=== PATIENT | male | born 1945 | race Caucasian/White ===

== ENCOUNTER 2017-11-04 13:06 | Inpatient (IN) | payer MEDICARE ==
[2017-11-04] VITALS (10 sets, daily range): BP systolic 94–126; BP diastolic 52–74
[~2017-11-04] VITALS: Ht 177.8 cm; Wt 90.0 kg
[~2017-11-04 13:06] MED LIST: DOPamine/D5W 400mg/250ml bag IV ONE; K, MAG and/or Phos replacement - Verify level? MC SCH; NORepinephrine 1 mg/ml inj IV ONE; amiodarone 50MG/ML inj IV ONE; cefTRIAXone 1g/NS 100ml IVPB 100 ML IV SCH; enoxaparin 80mg/0.8ml syringe SQ SCH; epiNEPHrine 0.1mg/ml 10ml syringe ONE; etomidate 2mg/ml inj. ONE; pantoprazole 40 MG vial IV SCH; rocuronium 10mg/ml inj IV ONE
[2017-11-04] MEDS ORDERED: amiodarone/D5 360MG/200ML BAG 200 ML IV SCH (13:12)
[2017-11-04] MEDS: DOPamine 400mg/D5W 250ml 250 ML IV SCH ×2 (13:52→15:52)
[2017-11-04 13:57] LABS: INR 1.1 INR; PARTIAL THROMBOPLASTIN TIME 22 SECONDS (22-32); PROTHROMBIN TIME 11.4 SECONDS (9.0-12.0)
[2017-11-04 14:01] LABS: ALANINE AMINOTRANSFERASE 76 U/L (12-78); ALBUMIN 2.8 G/DL (3.4-5.0); ALKALINE PHOSPHATASE 58 IU/L (46-116); ANION GAP 18 (8-16); ASPARTATE AMINO TRANSFERASE 112 U/L (10-37); BILIRUBIN,TOTAL 0.5 MG/DL (0.1-1.0); BLOOD UREA NITROGEN 25 MG/DL (7-18); BUN/CREATININE RATIO 22.9 (5.4-32.0); CALCIUM 6.7 MG/DL (8.5-10.1); CHLORIDE 109 MMOL/L (99-107); CREATININE 1.09 MG/DL (0.60-1.10); GLUCOSE 217 MG/DL (70-104); SODIUM 147 MMOL/L (135-145); TOTAL CARBON DIOXIDE 20.5 MMOL/L (24-32); TOTAL PROTEIN 5.6 G/DL (6.4-8.2); eGFR 67 ML/MIN
[2017-11-04] MEDS ORDERED: normal saline 1000ml 1,000 ML IV SCH (14:04)
[2017-11-04 14:05] LABS: POTASSIUM 2.9 MMOL/L (3.5-5.1)
[2017-11-04] MEDS ORDERED: magnesium 2GM in 50ml NS 50 ML IV PRN ×2 (14:05→19:10)
[2017-11-04] MEDS ORDERED: potassium Cl 20 mEq SR tablet PO PRN ×2 (14:05)
[2017-11-04] MEDS ORDERED: acetaminophen 325mg tablet PO PRN ×2 (14:05)
[2017-11-04] MEDS ORDERED: magnesium hydroxide 30ml (MOM) UD suspension PO PRN (14:05)
[2017-11-04] MEDS ORDERED: ondansetron/PF 4mg/2ml inj IV PRN (14:05)
[2017-11-04] MEDS ORDERED: Neutra Phos packet PO PRN (14:05)
[2017-11-04] MEDS ORDERED: magnesium Cl slow-release 64mg tablet PO PRN (14:05)
[2017-11-04] MEDS ORDERED: sodium phosphate inj. 15 MMOL in dextrose 5%-water 150 ML IV PRN (14:05)
[2017-11-04] MEDS ORDERED: magnesium 4gm in 100ml NS 100 ML IV PRN ×2 (14:05→19:10)
[2017-11-04] MEDS ORDERED: sodium phosphate inj. 30 MMOL in dextrose 5%-water 250 ML IV PRN (14:05)
[2017-11-04 14:15] LABS: BASOPHILS % (AUTO) 0.2 % (0-1); EOSINOPHILS # (AUTO) 0.3 X10'3 (0-0.9); EOSINOPHILS % (AUTO) 1.5 % (0-6); HEMATOCRIT 42.8 % (42.0-52.0); HEMOGLOBIN 14.9 g/dl (14.0-17.9); LYMPHOCYTES # (AUTO) 3.2 X10'3 (1.1-4.8); LYMPHOCYTES % (AUTO) 18.5 % (21-51); MEAN CORPUSCULAR HEMOGLOBIN 31.3 PG (27.0-31.0); MEAN CORPUSCULAR HGB CONC 34.9 % (33.0-36.5); MEAN CORPUSCULAR VOLUME 89.8 FL (78-98); MEAN PLATELET VOLUME 6.8 FL (7.4-10.4); MONOCYTES # (AUTO) 0.6 X10'3 (0-0.9); MONOCYTES % (AUTO) 3.6 % (2-12); NEUTROPHILS # (AUTO) 13.3 X10'3 (1.8-7.7); NEUTROPHILS % (AUTO) 76.2 % (42-75); PLATELET COUNT 220 X10'3 (140-440); RED BLOOD COUNT 4.76 X10'6 (4.70-6.10); RED CELL DISTRIBUTION WIDTH 12.8 % (11.5-14.5); WHITE BLOOD COUNT 17.5 X10'3 (4.5-11.0)
[2017-11-04] MEDS ORDERED: CISatracurium **Bolus** 2 mg/ml inj IV PRN (14:15)
[2017-11-04] MEDS ORDERED: dextrose 50%-water 50ml dispensing syringe IV PRN (14:15)
[2017-11-04] MEDS ORDERED: midazolam 100mg in NS 100ml 100 ML IV PRN (14:20)
[2017-11-04] MEDS ORDERED: FENTANYL-0.9 % NACL/PF 100 ML IV PRN (14:20)
[2017-11-04 14:41] LABS: ABG BASE EXCESS -9.1 mmol/L (-2.0-3.0); ABG HCO3 18.2 mmol/L (22.0-26.0); ABG OXYGEN SATURATION 99.4 % (95-98); ABG PCO2 (T) 44.2 mmHg (35.0-48.0); ABG PH (T) 7.232 (7.350-7.450); ABG PO2 (T) 324.4 mmHg (83-108); ALLEN'S TEST Positive; FCOHb 0.7 % (0.5-1.5); FMetHb 0.2 % (0.3-1.12); FO2Hb 98.5 % (94-100); MINUTE VOLUME 9 L/min; PEEP 5 cm H2O; RESPIRATORY RATE 18 b/min; RESPIRATORY RATE (OBSERVED) 18 b/min; TIDAL VOLUME 450 mL; TOTAL HEMOGLOBIN 14.5 G/dl (14.0-18.0)
[2017-11-04] MEDS ORDERED: magnesium 2GM in 50ml NS 50 ML IV ONE (15:15)
[2017-11-04] MEDS ORDERED: potassium 10mEq/100ml NS w/LIDOcaine (10mg/bag) IV ONE (15:15)
[2017-11-04 15:38] LABS: BASOPHILS # (AUTO) 0.1 X10'3 (0-0.2); BASOPHILS % (AUTO) 0.3 % (0-1); EOSINOPHILS # (AUTO) 0.2 X10'3 (0-0.9); EOSINOPHILS % (AUTO) 1.1 % (0-6); HEMATOCRIT 50.7 % (42.0-52.0); HEMOGLOBIN 17.4 g/dl (14.0-17.9); LYMPHOCYTES # (AUTO) 2.1 X10'3 (1.1-4.8); MEAN CORPUSCULAR HEMOGLOBIN 30.9 PG (27.0-31.0); MEAN CORPUSCULAR HGB CONC 34.3 % (33.0-36.5); MEAN CORPUSCULAR VOLUME 90.1 FL (78-98); MEAN PLATELET VOLUME 6.9 FL (7.4-10.4); MONOCYTES # (AUTO) 0.5 X10'3 (0-0.9); MONOCYTES % (AUTO) 2.6 % (2-12); NEUTROPHILS # (AUTO) 16.1 X10'3 (1.8-7.7); PLATELET COUNT 243 X10'3 (140-440); RED BLOOD COUNT 5.62 X10'6 (4.70-6.10); WHITE BLOOD COUNT 18.9 X10'3 (4.5-11.0)
[2017-11-04] MEDS ORDERED: meperidine/PF 25mg/ml syringe IV SCH (16:00)
[2017-11-04] MEDS ORDERED: heparin, porcine 5000 units/ml vial SQ SCH ×2 (16:00→20:00)
[2017-11-04] MEDS ORDERED: mineral oil/petrolatum ophthal oint OP SCH (16:00)
[2017-11-04] MEDS ORDERED: nitroGLYCERIN-Tridil 50MG/D5W 250 ML IV ONE (16:03)
[2017-11-04] MEDS ORDERED: heparin 1,000unit/ml 10ml vial 10 ML ONE (16:03)
[2017-11-04] MEDS ORDERED: LIDOcaine 1%/PF (10mg/ml) 5ml vial ONE (16:03)
[2017-11-04] MEDS ORDERED: iohexol 350 MG/ML 50ML vial IV ONE (16:03)
[2017-11-04] MEDS ORDERED: iohexol 350 MG/1 ML 200ml bottle ONE (16:03)
[2017-11-04] MEDS ORDERED: sodium bicarbonate (8.4%) 1 mEq/ml syringe IV ONE (16:10)
[2017-11-04 16:11] LABS: BETA HCG,QUANTITATIVE < 1.0 mIU/ml; CKMB RELATIVE INDEX 1.5 RATIO (0-2.5); CREATINE KINASE 183 U/L (39-308); MAGNESIUM 1.9 MG/DL (1.5-2.4); PHOSPHORUS 5.4 MG/DL (2.3-4.5); TROPONIN I 0.09 NG/ML (0.0-0.05)
[2017-11-04] MEDS ORDERED: potassium Cl 20mEq/100mL bag 100 ML IV ONE (16:24)
[2017-11-04] MEDS ORDERED: ticagrelor 90mg tablet ONE (16:59)
[2017-11-04] MEDS ORDERED: enoxaparin 40mg/0.4ml syringe SUBCUT SCH (17:39)
[2017-11-04] MEDS ORDERED: aspirin 81mg tab.chew PO ONE (17:46)
[2017-11-04] MEDS ORDERED: ticagrelor 90mg tablet PO ONE (17:46)
[2017-11-04] MEDS ORDERED: proCHLORperazine 10 MG/2 ml inj IV PRN (17:50)
[2017-11-04] MEDS: insulin Lispro (HumaLOG) vial - multi-dose SQ SCH (18:00)
[2017-11-04 19:10] LABS: ABG BASE EXCESS -10.1 mmol/L (-2.0-3.0); ABG HCO3 18.3 mmol/L (22.0-26.0); ABG OXYGEN SATURATION 98.1 % (95-98); ABG PCO2 (T) 46.7 mmHg (35.0-48.0); ABG PH (T) 7.205 (7.350-7.450); FCOHb 0.3 % (0.5-1.5); FMetHb 0.3 % (0.3-1.12); FO2Hb 97.5 % (94-100); MINUTE VOLUME 11 L/min; PATIENT TEMPERATURE 35.6; PEEP 5 cm H2O; RESPIRATORY RATE 18 b/min; RESPIRATORY RATE (OBSERVED) 18 b/min; TIDAL VOLUME 450 mL; TOTAL HEMOGLOBIN 16.5 G/dl (14.0-18.0)
[2017-11-04] MEDS: sodium bicarbonate (8.4%) inj. 150 MEQ in dextrose 5%-water 1,000 ML IV SCH (19:12)
[2017-11-04] MEDS ORDERED: potassium Cl oral solution 20 MEQ/15 ML PO PRN (19:14)
[2017-11-04 19:16] LABS: OXYGEN SATURATION (MIXED VEN) 71.4 % (60-80)
[2017-11-04] MEDS: insulin regular, human inj. 100 UNITS in normal saline 100ml IV soln 100 ML IV SCH ×2 (19:58)
[2017-11-04] MEDS: normal saline 1000ml 1,000 ML IV SCH (19:59)
[2017-11-04] MEDS: potassium Cl 40MEQ/250ML bag 250 ML IV PRN ×2 (19:59→22:13)
[2017-11-04] MEDS ORDERED: ticagrelor 90mg tablet PO SCH (20:00)
[2017-11-04] MEDS: FENTANYL-0.9 % NACL/PF 100 ML IV PRN (20:00)
[2017-11-04] MEDS ORDERED: docusate sod 100mg capsule PO SCH (20:00)
[2017-11-04] MEDS: midazolam 100mg in NS 100ml 100 ML IV PRN (20:00)
[2017-11-04 20:06] LABS: ISTAT HGB ART 15.6 g/dl (14.0-18.0); ISTAT Hct ART 46 %PCV (42-52); ISTAT O2 SATURATION ARTERIAL 98 % (95-98); ISTAT SOURCE ART
[2017-11-04 20:06] LABS: ISTAT Hct MIX 46 %PCV (42-52); ISTAT O2 SATURATION MIX VENOUS 80 % (60-80); ISTAT SOURCE MIX
[2017-11-04] MEDS ORDERED: meperidine/PF 25mg/ml syringe IV PRN (20:45)
[2017-11-04] MEDS: atorvastatin 20mg tablet PO SCH (21:08)
[2017-11-04] MEDS: piperacillin/tazo 4.5gm/100ml 100 ML IV SCH (21:12)
[2017-11-04] MEDS: CISatracurium besylate inj. 200 MG in normal saline 250ml IV soln 180 ML IV PRN (21:22)
[2017-11-04 21:34] LABS: ALBUMIN 3.5 G/DL (3.4-5.0); ANION GAP 13 (8-16); BLOOD UREA NITROGEN 27 MG/DL (7-18); BUN/CREATININE RATIO 23.7 (5.4-32.0); CALCIUM 7.2 MG/DL (8.5-10.1); CHLORIDE 111 MMOL/L (99-107); CHOL/HDL RATIO 2.5 (0.00-4.99); CHOLESTEROL 127 MG/DL (0-200); CREATININE 1.14 MG/DL (0.60-1.10); GLUCOSE 186 MG/DL (70-104); HDL CHOLESTEROL 50 MG/DL (35-60); LDL CHOLESTEROL 77 MG/DL (50-100); MAGNESIUM 2.1 MG/DL (1.5-2.4); POTASSIUM 4.3 MMOL/L (3.5-5.1); SODIUM 145 MMOL/L (135-145); TOTAL CARBON DIOXIDE 20.6 MMOL/L (24-32); TRIGLYCERIDES 28 MG/DL (20-135); eGFR 64 ML/MIN
[2017-11-04] MEDS: cefTRIAXone 1g/NS 100ml IVPB 100 ML IV SCH (22:13)
[2017-11-05] VITALS (24 sets, daily range): BP systolic 94–136; BP diastolic 47–68
[2017-11-05] MEDS: FENTANYL-0.9 % NACL/PF 100 ML IV PRN (00:08)
[2017-11-05] MEDS: normal saline 1000ml 1,000 ML IV SCH ×2 (00:13→03:38)
[2017-11-05] MEDS: midazolam 100mg in NS 100ml 100 ML IV PRN (01:06)
[2017-11-05] MEDS: piperacillin/tazo 4.5gm/100ml 100 ML IV SCH ×3 (02:05→17:28)
[2017-11-05 02:16] LABS: ABG BASE EXCESS -4.7 mmol/L (-2.0-3.0); ABG HCO3 19.6 mmol/L (22.0-26.0); ABG OXYGEN SATURATION 98.8 % (95-98); ABG PCO2 (T) 28.7 mmHg (35.0-48.0); ABG PH (T) 7.434 (7.350-7.450); ABG PO2 (T) 120.9 mmHg (83-108); FCOHb 0.3 % (0.5-1.5); FO2Hb 98.5 % (94-100); MINUTE VOLUME 9 L/min; PATIENT TEMPERATURE 32.8; PEEP 5 cm H2O; RESPIRATORY RATE 18 b/min; RESPIRATORY RATE (OBSERVED) 18 b/min; TIDAL VOLUME 450 mL; TOTAL HEMOGLOBIN 15.8 G/dl (14.0-18.0)
[2017-11-05 02:21] LABS: OXYGEN SATURATION (MIXED VEN) 75.9 % (60-80); PO2 MIXED VENOUS (TEMP COR) 26.9 mmHg (35-46)
[2017-11-05 02:44] LABS: CHLORIDE 110 MMOL/L (99-107); MAGNESIUM 1.9 MG/DL (1.5-2.4); SODIUM 145 MMOL/L (135-145)
[2017-11-05 03:07] LABS: ALBUMIN 3.3 G/DL (3.4-5.0); ANION GAP 14 (8-16); BLOOD UREA NITROGEN 22 MG/DL (7-18); BUN/CREATININE RATIO 24.2 (5.4-32.0); CALCIUM 7.3 MG/DL (8.5-10.1); CREATININE 0.91 MG/DL (0.60-1.10); GLUCOSE 183 MG/DL (70-104); TOTAL CARBON DIOXIDE 20.8 MMOL/L (24-32); eGFR 82 ML/MIN
[2017-11-05 03:19] LABS: POTASSIUM 2.9 MMOL/L (3.5-5.1)
[2017-11-05] MEDS ORDERED: potassium Cl 40MEQ/250ML bag 250 ML IV ONE (03:34)
[2017-11-05] MEDS: potassium Cl 40MEQ/250ML bag 250 ML IV PRN ×2 (03:38→08:52)
[2017-11-05 03:49] LABS: CKMB RELATIVE INDEX 6.4 RATIO (0-2.5); CREATINE KINASE 283 U/L (39-308)
[2017-11-05 04:44] LABS: BASOPHILS % (AUTO) 0 % (0-1); EOSINOPHILS % (AUTO) 0 % (0-6); HEMATOCRIT 42.6 % (42.0-52.0); HEMOGLOBIN 14.9 g/dl (14.0-17.9); LYMPHOCYTES # (AUTO) 0.8 X10'3 (1.1-4.8); LYMPHOCYTES % (AUTO) 5.1 % (21-51); MEAN CORPUSCULAR HEMOGLOBIN 31.2 PG (27.0-31.0); MEAN CORPUSCULAR HGB CONC 34.9 % (33.0-36.5); MEAN CORPUSCULAR VOLUME 89.4 FL (78-98); MEAN PLATELET VOLUME 6.9 FL (7.4-10.4); MONOCYTES # (AUTO) 0.7 X10'3 (0-0.9); MONOCYTES % (AUTO) 4.4 % (2-12); NEUTROPHILS % (AUTO) 90.5 % (42-75); PLATELET COUNT 160 X10'3 (140-440); RED BLOOD COUNT 4.76 X10'6 (4.70-6.10); RED CELL DISTRIBUTION WIDTH 12.5 % (11.5-14.5); WHITE BLOOD COUNT 16.6 X10'3 (4.5-11.0)
[2017-11-05 04:58] LABS: INR 1.1 INR; PROTHROMBIN TIME 11.4 SECONDS (9.0-12.0)
[2017-11-05 05:08] LABS: ALANINE AMINOTRANSFERASE 80 U/L (12-78); ALBUMIN 3.2 G/DL (3.4-5.0); ALKALINE PHOSPHATASE 48 IU/L (46-116); ANION GAP 12 (8-16); ASPARTATE AMINO TRANSFERASE 95 U/L (10-37); BILIRUBIN,TOTAL 0.7 MG/DL (0.1-1.0); BLOOD UREA NITROGEN 20 MG/DL (7-18); BUN/CREATININE RATIO 23.3 (5.4-32.0); CALCIUM 7.3 MG/DL (8.5-10.1); CHLORIDE 110 MMOL/L (99-107); CREATININE 0.86 MG/DL (0.60-1.10); GLUCOSE 171 MG/DL (70-104); MAGNESIUM 1.8 MG/DL (1.5-2.4); POTASSIUM 3.2 MMOL/L (3.5-5.1); SODIUM 145 MMOL/L (135-145); TOTAL CARBON DIOXIDE 23.5 MMOL/L (24-32); TOTAL PROTEIN 6.4 G/DL (6.4-8.2); eGFR 88 ML/MIN
[2017-11-05 05:10] LABS: PHOSPHORUS 0.9 MG/DL (2.3-4.5)
[2017-11-05] MEDS: sodium bicarbonate (8.4%) inj. 150 MEQ in dextrose 5%-water 1,000 ML IV SCH ×2 (05:15→17:28)
[2017-11-05] MEDS: DOPamine 400mg/D5W 250ml 250 ML IV SCH ×2 (05:15→17:29)
[2017-11-05] MEDS: potassium Cl oral solution 20 MEQ/15 ML PO PRN (05:43)
[2017-11-05 06:47] LABS: ALBUMIN 3.3 G/DL (3.4-5.0); ANION GAP 12 (8-16); BLOOD UREA NITROGEN 20 MG/DL (7-18); BUN/CREATININE RATIO 22.7 (5.4-32.0); CALCIUM 7.1 MG/DL (8.5-10.1); CHLORIDE 110 MMOL/L (99-107); CREATININE 0.88 MG/DL (0.60-1.10); GLUCOSE 157 MG/DL (70-104); MAGNESIUM 1.7 MG/DL (1.5-2.4); SODIUM 145 MMOL/L (135-145); eGFR 86 ML/MIN
[2017-11-05 06:50] LABS: CKMB RELATIVE INDEX 3.3 RATIO (0-2.5); CREATINE KINASE 1662 U/L (39-308)
[2017-11-05 06:52] LABS: TROPONIN I 1.97 NG/ML (0.0-0.05)
[2017-11-05] MEDS: lisinopril 5mg tablet PO SCH ×2 (08:00→08:43)
[2017-11-05] MEDS: K and/or MAG REPLACEMENT MC SCH (08:00)
[2017-11-05] MEDS: metoprolol tartrate 25mg tablet PO SCH ×2 (08:00→19:31)
[2017-11-05 08:01] LABS: PO2 MIXED VENOUS (TEMP COR) 36.2 mmHg (35-46)
[2017-11-05 08:01] LABS: ABG BASE EXCESS -4.7 mmol/L (-2.0-3.0); ABG HCO3 19.4 mmol/L (22.0-26.0); ABG OXYGEN SATURATION 97.9 % (95-98); ABG PCO2 (T) 27.8 mmHg (35.0-48.0); ABG PH (T) 7.442 (7.350-7.450); FCOHb 0.3 % (0.5-1.5); FMetHb 0.1 % (0.3-1.12); FO2Hb 97.5 % (94-100); MINUTE VOLUME 9 L/min; PATIENT TEMPERATURE 32.8; PEEP 5 cm H2O; RESPIRATORY RATE 18 b/min; RESPIRATORY RATE (OBSERVED) 18 b/min; TIDAL VOLUME 450 mL; TOTAL HEMOGLOBIN 15.3 G/dl (14.0-18.0)
[2017-11-05] MEDS: pantoprazole 40 MG vial IV SCH (08:43)
[2017-11-05] MEDS: aspirin 81mg tab.chew PO SCH (08:43)
[2017-11-05] MEDS: ticagrelor 90mg tablet PO SCH ×2 (08:43→20:19)
[2017-11-05] MEDS: insulin Lispro (HumaLOG) vial - multi-dose SQ SCH ×3 (09:00→18:00)
[2017-11-05 09:28] LABS: PHOSPHORUS 0.8 MG/DL (2.3-4.5)
[2017-11-05] MEDS: docusate sodium 100mg/10ml UD cup PO SCH ×2 (09:42→20:19)
[2017-11-05] MEDS ORDERED: NO HOME MEDS (11:21)
[2017-11-05] MEDS ORDERED: mineral oil/petrolatum ophthal oint EACHEYE PRN (12:00)
[2017-11-05] MEDS: insulin regular, human inj. 100 UNITS in normal saline 100ml IV soln 100 ML IV SCH ×4 (14:15→18:19)
[2017-11-05 14:53] LABS: CKMB RELATIVE INDEX 3.4 RATIO (0-2.5); CREATINE KINASE 1666 U/L (39-308)
[2017-11-05 14:55] LABS: TROPONIN I 1.11 NG/ML (0.0-0.05)
[2017-11-05 15:00] LABS: ABG BASE EXCESS -1.9 mmol/L (-2.0-3.0); ABG HCO3 22.3 mmol/L (22.0-26.0); ABG PCO2 (T) 31.3 mmHg (35.0-48.0); ABG PH (T) 7.456 (7.350-7.450); ABG PO2 (T) 87.3 mmHg (83-108); FCOHb 0.1 % (0.5-1.5); FMetHb 0.3 % (0.3-1.12); FO2Hb 97.6 % (94-100); MINUTE VOLUME 8 L/min; PATIENT TEMPERATURE 33.6; PEEP 5 cm H2O; RESPIRATORY RATE 15 b/min; RESPIRATORY RATE (OBSERVED) 15 b/min; TIDAL VOLUME 450 mL; TOTAL HEMOGLOBIN 14.8 G/dl (14.0-18.0)
[2017-11-05 15:06] LABS: OXYGEN SATURATION (MIXED VEN) 86.2 % (60-80); PO2 MIXED VENOUS (TEMP COR) 35.7 mmHg (35-46)
[2017-11-05 15:44] LABS: ALBUMIN 2.9 G/DL (3.4-5.0); ANION GAP 10 (8-16); BLOOD UREA NITROGEN 20 MG/DL (7-18); BUN/CREATININE RATIO 28.2 (5.4-32.0); CHLORIDE 109 MMOL/L (99-107); CREATININE 0.71 MG/DL (0.60-1.10); GLUCOSE 115 MG/DL (70-104); MAGNESIUM 1.7 MG/DL (1.5-2.4); POTASSIUM 3.6 MMOL/L (3.5-5.1); SODIUM 145 MMOL/L (135-145); TOTAL CARBON DIOXIDE 25.6 MMOL/L (24-32); eGFR > 90 ML/MIN
[2017-11-05] MEDS ORDERED: mineral oil/petrolatum ophthal oint EACHEYE SCH (20:00)
[2017-11-05] MEDS: atorvastatin 20mg tablet PO SCH (20:20)
[2017-11-05] MEDS: cefTRIAXone 1g/NS 100ml IVPB 100 ML IV SCH (20:21)
[2017-11-05] MEDS: heparin, porcine 5000 units/ml vial SQ SCH (20:21)
[2017-11-05 20:31] LABS: ABG BASE EXCESS -0.6 mmol/L (-2.0-3.0); ABG HCO3 23.9 mmol/L (22.0-26.0); ABG PCO2 (T) 34.3 mmHg (35.0-48.0); ABG PH (T) 7.449 (7.350-7.450); ABG PO2 (T) 57.5 mmHg (83-108); MINUTE VOLUME 12 L/min; PATIENT TEMPERATURE 34.1; PEEP 5 cm H2O; RESPIRATORY RATE 12 b/min; RESPIRATORY RATE (OBSERVED) 16 b/min; TIDAL VOLUME 450 mL
[2017-11-05 20:32] LABS: ABG OXYGEN SATURATION 94.9 % (95-98); FCOHb 0.2 % (0.5-1.5); FMetHb 0.1 % (0.3-1.12); FO2Hb 94.6 % (94-100); TOTAL HEMOGLOBIN 14.4 G/dl (14.0-18.0)
[2017-11-05 20:36] LABS: ALBUMIN 2.8 G/DL (3.4-5.0); ANION GAP 7 (8-16); BLOOD UREA NITROGEN 20 MG/DL (7-18); BUN/CREATININE RATIO 29.4 (5.4-32.0); CHLORIDE 108 MMOL/L (99-107); CREATININE 0.68 MG/DL (0.60-1.10); GLUCOSE 130 MG/DL (70-104); MAGNESIUM 1.7 MG/DL (1.5-2.4); POTASSIUM 3.2 MMOL/L (3.5-5.1); SODIUM 145 MMOL/L (135-145); TOTAL CARBON DIOXIDE 29.9 MMOL/L (24-32); eGFR > 90 ML/MIN
[2017-11-05 20:36] LABS: OXYGEN SATURATION (MIXED VEN) 74.4 % (60-80); PO2 MIXED VENOUS (TEMP COR) 29.7 mmHg (35-46)
[2017-11-05] MEDS: CISatracurium besylate inj. 200 MG in normal saline 250ml IV soln 180 ML IV PRN (21:57)
[2017-11-06] VITALS (24 sets, daily range): BP systolic 86–133; BP diastolic 44–63
[2017-11-06] MEDS: piperacillin/tazo 4.5gm/100ml 100 ML IV SCH ×4 (00:04→23:38)
[2017-11-06] MEDS: insulin regular, human inj. 100 UNITS in normal saline 100ml IV soln 100 ML IV SCH ×6 (01:10→04:07)
[2017-11-06] MEDS: FENTANYL-0.9 % NACL/PF 100 ML IV PRN ×2 (01:39→18:35)
[2017-11-06] MEDS: midazolam 100mg in NS 100ml 100 ML IV PRN ×2 (01:40→14:44)
[2017-11-06 02:20] LABS: BASOPHILS % (AUTO) 0.1 % (0-1); EOSINOPHILS % (AUTO) 0 % (0-6); HEMATOCRIT 38.5 % (42.0-52.0); HEMOGLOBIN 13.4 g/dl (14.0-17.9); LYMPHOCYTES % (AUTO) 6.5 % (21-51); MEAN CORPUSCULAR HEMOGLOBIN 31.4 PG (27.0-31.0); MEAN CORPUSCULAR HGB CONC 34.8 % (33.0-36.5); MEAN PLATELET VOLUME 6.6 FL (7.4-10.4); MONOCYTES # (AUTO) 0.6 X10'3 (0-0.9); MONOCYTES % (AUTO) 3.7 % (2-12); NEUTROPHILS # (AUTO) 13.6 X10'3 (1.8-7.7); NEUTROPHILS % (AUTO) 89.7 % (42-75); PLATELET COUNT 151 X10'3 (140-440); RED BLOOD COUNT 4.27 X10'6 (4.70-6.10); RED CELL DISTRIBUTION WIDTH 12.8 % (11.5-14.5); WHITE BLOOD COUNT 15.2 X10'3 (4.5-11.0)
[2017-11-06 02:31] LABS: INR 1.1 INR; PARTIAL THROMBOPLASTIN TIME 29 SECONDS (22-32); PROTHROMBIN TIME 11.4 SECONDS (9.0-12.0)
[2017-11-06 02:37] LABS: ALANINE AMINOTRANSFERASE 61 U/L (12-78); ALBUMIN 2.6 G/DL (3.4-5.0); ALBUMIN/GLOBULIN RATIO 0.9 (1.1-1.5); ALKALINE PHOSPHATASE 42 IU/L (46-116); ANION GAP 7 (8-16); ASPARTATE AMINO TRANSFERASE 56 U/L (10-37); BILIRUBIN,TOTAL 0.8 MG/DL (0.1-1.0); BLOOD UREA NITROGEN 18 MG/DL (7-18); BUN/CREATININE RATIO 21.4 (5.4-32.0); CALCIUM 6.7 MG/DL (8.5-10.1); CHLORIDE 105 MMOL/L (99-107); CREATININE 0.84 MG/DL (0.60-1.10); GLUCOSE 152 MG/DL (70-104); MAGNESIUM 1.6 MG/DL (1.5-2.4); PHOSPHORUS 3.4 MG/DL (2.3-4.5); POTASSIUM 3.5 MMOL/L (3.5-5.1); SODIUM 142 MMOL/L (135-145); TOTAL CARBON DIOXIDE 30.4 MMOL/L (24-32); TOTAL PROTEIN 5.6 G/DL (6.4-8.2); eGFR 90 ML/MIN
[2017-11-06 03:21] LABS: ABG BASE EXCESS 3.5 mmol/L (-2.0-3.0); ABG HCO3 28.4 mmol/L (22.0-26.0); ABG OXYGEN SATURATION 95.7 % (95-98); ABG PCO2 (T) 41.9 mmHg (35.0-48.0); ABG PH (T) 7.444 (7.350-7.450); ABG PO2 (T) 71.1 mmHg (83-108); FCOHb 0.3 % (0.5-1.5); FO2Hb 95.4 % (94-100); MINUTE VOLUME 6 L/min; PATIENT TEMPERATURE 35.9; PEEP 5 cm H2O; RESPIRATORY RATE 12 b/min; RESPIRATORY RATE (OBSERVED) 12 b/min; TIDAL VOLUME 450 mL; TOTAL HEMOGLOBIN 13.5 G/dl (14.0-18.0)
[2017-11-06] MEDS: sodium bicarbonate (8.4%) inj. 150 MEQ in dextrose 5%-water 1,000 ML IV SCH (04:59)
[2017-11-06] MEDS: K and/or MAG REPLACEMENT MC SCH (08:00)
[2017-11-06] MEDS: insulin Lispro (HumaLOG) vial - multi-dose SQ SCH (09:00)
[2017-11-06] MEDS: ticagrelor 90mg tablet PO SCH ×2 (10:32→20:33)
[2017-11-06] MEDS: lisinopril 5mg tablet PO SCH (10:32)
[2017-11-06] MEDS: pantoprazole 40 MG vial IV SCH (10:32)
[2017-11-06] MEDS: aspirin 81mg tab.chew PO SCH (10:32)
[2017-11-06] MEDS: metoprolol tartrate 25mg tablet PO SCH ×2 (10:32→20:00)
[2017-11-06] MEDS: docusate sodium 100mg/10ml UD cup PO SCH ×2 (10:32→20:30)
[2017-11-06] MEDS: heparin, porcine 5000 units/ml vial SQ SCH ×2 (10:33→20:30)
[2017-11-06] MEDS: atorvastatin 20mg tablet PO SCH (20:30)
[2017-11-06] MEDS: cefTRIAXone 1g/NS 100ml IVPB 100 ML IV SCH (20:35)
[2017-11-07] VITALS (24 sets, daily range): BP systolic 85–162; BP diastolic 47–78
[2017-11-07] MEDS: midazolam 100mg in NS 100ml 100 ML IV PRN (02:39)
[2017-11-07 02:49] LABS: BASOPHILS % (AUTO) 0.1 % (0-1); EOSINOPHILS # (AUTO) 0.1 X10'3 (0-0.9); EOSINOPHILS % (AUTO) 0.6 % (0-6); HEMATOCRIT 33.7 % (42.0-52.0); HEMOGLOBIN 11.8 g/dl (14.0-17.9); LYMPHOCYTES # (AUTO) 1.3 X10'3 (1.1-4.8); MEAN CORPUSCULAR HEMOGLOBIN 31.3 PG (27.0-31.0); MEAN CORPUSCULAR HGB CONC 35.1 % (33.0-36.5); MEAN CORPUSCULAR VOLUME 89.2 FL (78-98); MEAN PLATELET VOLUME 7.3 FL (7.4-10.4); MONOCYTES # (AUTO) 0.7 X10'3 (0-0.9); MONOCYTES % (AUTO) 6.3 % (2-12); NEUTROPHILS # (AUTO) 8.7 X10'3 (1.8-7.7); PLATELET COUNT 121 X10'3 (140-440); RED BLOOD COUNT 3.78 X10'6 (4.70-6.10); RED CELL DISTRIBUTION WIDTH 13.1 % (11.5-14.5); WHITE BLOOD COUNT 10.7 X10'3 (4.5-11.0)
[2017-11-07 03:01] LABS: INR 1.1 INR; PARTIAL THROMBOPLASTIN TIME 31 SECONDS (22-32); PROTHROMBIN TIME 11.3 SECONDS (9.0-12.0)
[2017-11-07 03:06] LABS: ANION GAP 9 (8-16); BLOOD UREA NITROGEN 19 MG/DL (7-18); CHLORIDE 106 MMOL/L (99-107); CREATININE 0.97 MG/DL (0.60-1.10); GLUCOSE 112 MG/DL (70-104); POTASSIUM 3.3 MMOL/L (3.5-5.1); SODIUM 144 MMOL/L (135-145); TOTAL CARBON DIOXIDE 29.3 MMOL/L (24-32)
[2017-11-07 03:07] LABS: ALANINE AMINOTRANSFERASE 44 U/L (12-78); ALBUMIN 2.4 G/DL (3.4-5.0); ALBUMIN/GLOBULIN RATIO 0.8 (1.1-1.5); ALKALINE PHOSPHATASE 41 IU/L (46-116); ASPARTATE AMINO TRANSFERASE 35 U/L (10-37); BILIRUBIN,TOTAL 1.1 MG/DL (0.1-1.0); BUN/CREATININE RATIO 19.6 (5.4-32.0); CALCIUM 7.2 MG/DL (8.5-10.1); MAGNESIUM 1.6 MG/DL (1.5-2.4); PHOSPHORUS 3.5 MG/DL (2.3-4.5); PREALBUMIN 15.4 MG/DL (19-36); TOTAL PROTEIN 5.5 G/DL (6.4-8.2); eGFR 77 ML/MIN
[2017-11-07 03:51] LABS: ABG BASE EXCESS 2.8 mmol/L (-2.0-3.0); ABG HCO3 26.9 mmol/L (22.0-26.0); ABG PCO2 (T) 40.7 mmHg (35.0-48.0); ABG PH (T) 7.441 (7.350-7.450); ABG PO2 (T) 67.7 mmHg (83-108); FCOHb 0.4 % (0.5-1.5); FO2Hb 93.6 % (94-100); MINUTE VOLUME 7 L/min; PATIENT TEMPERATURE 37.6; PEEP 5 cm H2O; RESPIRATORY RATE 12 b/min; RESPIRATORY RATE (OBSERVED) 14 b/min; TIDAL VOLUME 450 mL; TOTAL HEMOGLOBIN 12.5 G/dl (14.0-18.0)
[2017-11-07] MEDS ORDERED: potassium Cl 40MEQ/250ML bag 250 ML IV ONE (04:01)
[2017-11-07] MEDS: potassium Cl 40MEQ/250ML bag 250 ML IV PRN (04:15)
[2017-11-07] MEDS: FENTANYL-0.9 % NACL/PF 100 ML IV PRN ×2 (05:40→22:29)
[2017-11-07] MEDS: K and/or MAG REPLACEMENT MC SCH (08:00)
[2017-11-07] MEDS: docusate sodium 100mg/10ml UD cup PO SCH ×2 (08:25→19:00)
[2017-11-07] MEDS: lisinopril 5mg tablet PO SCH (08:25)
[2017-11-07] MEDS: metoprolol tartrate 25mg tablet PO SCH ×2 (08:25→19:00)
[2017-11-07] MEDS: heparin, porcine 5000 units/ml vial SQ SCH ×2 (08:25→19:01)
[2017-11-07] MEDS: piperacillin/tazo 4.5gm/100ml 100 ML IV SCH ×3 (08:25→23:49)
[2017-11-07] MEDS: pantoprazole 40 MG vial IV SCH (08:25)
[2017-11-07] MEDS: ticagrelor 90mg tablet PO SCH ×2 (08:26→19:00)
[2017-11-07] MEDS: aspirin 81mg tab.chew PO SCH (08:26)
[2017-11-07] MEDS: atorvastatin 20mg tablet PO SCH (21:17)
[2017-11-08] VITALS (24 sets, daily range): BP systolic 114–188; BP diastolic 60–94
[2017-11-08] MEDS ORDERED: normal saline 1000ml 1,000 ML IV ONE (01:45)
[2017-11-08 02:36] LABS: ABG BASE EXCESS -0.2 mmol/L (-2.0-3.0); ABG OXYGEN SATURATION 96.2 % (95-98); ABG PCO2 (T) 38.5 mmHg (35.0-48.0); ABG PH (T) 7.415 (7.350-7.450); ABG PO2 (T) 83.7 mmHg (83-108); ALLEN'S TEST Positive; FCOHb 0.3 % (0.5-1.5); FO2Hb 95.9 % (94-100); MINUTE VOLUME 11 L/min; PATIENT TEMPERATURE 37.4; PEEP 5 cm H2O; RESPIRATORY RATE 12 b/min; RESPIRATORY RATE (OBSERVED) 17 b/min; TIDAL VOLUME 450 mL; TOTAL HEMOGLOBIN 11.9 G/dl (14.0-18.0)
[2017-11-08 03:21] LABS: BASOPHILS % (AUTO) 0.3 % (0-1); EOSINOPHILS # (AUTO) 0.1 X10'3 (0-0.9); EOSINOPHILS % (AUTO) 1.2 % (0-6); HEMOGLOBIN 11.3 g/dl (14.0-17.9); LYMPHOCYTES # (AUTO) 1.4 X10'3 (1.1-4.8); LYMPHOCYTES % (AUTO) 16.3 % (21-51); MEAN CORPUSCULAR HEMOGLOBIN 31.6 PG (27.0-31.0); MEAN CORPUSCULAR HGB CONC 35.3 % (33.0-36.5); MEAN CORPUSCULAR VOLUME 89.5 FL (78-98); MONOCYTES # (AUTO) 0.7 X10'3 (0-0.9); MONOCYTES % (AUTO) 7.6 % (2-12); NEUTROPHILS # (AUTO) 6.5 X10'3 (1.8-7.7); NEUTROPHILS % (AUTO) 74.6 % (42-75); PLATELET COUNT 108 X10'3 (140-440); RED BLOOD COUNT 3.57 X10'6 (4.70-6.10); RED CELL DISTRIBUTION WIDTH 12.4 % (11.5-14.5); WHITE BLOOD COUNT 8.7 X10'3 (4.5-11.0)
[2017-11-08 03:30] LABS: PARTIAL THROMBOPLASTIN TIME 29 SECONDS (22-32); PROTHROMBIN TIME 10.5 SECONDS (9.0-12.0)
[2017-11-08 03:36] LABS: ALANINE AMINOTRANSFERASE 35 U/L (12-78); ALBUMIN 2.2 G/DL (3.4-5.0); ALBUMIN/GLOBULIN RATIO 0.7 (1.1-1.5); ALKALINE PHOSPHATASE 46 IU/L (46-116); ANION GAP 7 (8-16); ASPARTATE AMINO TRANSFERASE 27 U/L (10-37); BILIRUBIN,TOTAL 1.5 MG/DL (0.1-1.0); BLOOD UREA NITROGEN 18 MG/DL (7-18); BUN/CREATININE RATIO 17.3 (5.4-32.0); CALCIUM 7.3 MG/DL (8.5-10.1); CHLORIDE 108 MMOL/L (99-107); CREATININE 1.04 MG/DL (0.60-1.10); GLUCOSE 112 MG/DL (70-104); MAGNESIUM 1.7 MG/DL (1.5-2.4); PHOSPHORUS 2.9 MG/DL (2.3-4.5); POTASSIUM 3.6 MMOL/L (3.5-5.1); SODIUM 142 MMOL/L (135-145); TOTAL CARBON DIOXIDE 27.4 MMOL/L (24-32); TOTAL PROTEIN 5.4 G/DL (6.4-8.2); eGFR 71 ML/MIN
[2017-11-08] MEDS: docusate sodium 100mg/10ml UD cup PO SCH (08:29)
[2017-11-08] MEDS: piperacillin/tazo 4.5gm/100ml 100 ML IV SCH ×2 (08:29→16:14)
[2017-11-08] MEDS: pantoprazole 40 MG vial IV SCH (08:29)
[2017-11-08] MEDS: aspirin 81mg tab.chew PO SCH (08:30)
[2017-11-08] MEDS: metoprolol tartrate 25mg tablet PO SCH ×2 (08:30→20:15)
[2017-11-08] MEDS: ticagrelor 90mg tablet PO SCH ×2 (08:30→20:34)
[2017-11-08] MEDS: lactobacillus rhamnosus 10,000 MMU CELLS/CAPSULE PO SCH ×2 (08:30→17:39)
[2017-11-08] MEDS: heparin, porcine 5000 units/ml vial SQ SCH ×2 (08:30→20:34)
[2017-11-08] MEDS: lisinopril 5mg tablet PO SCH (08:30)
[2017-11-08] MEDS: atorvastatin 20mg tablet PO SCH (20:14)
[2017-11-08] MEDS: docusate sod 100mg capsule PO SCH (20:16)
[2017-11-09] VITALS (18 sets, daily range): BP systolic 123–166; BP diastolic 55–93
[2017-11-09] MEDS: piperacillin/tazo 4.5gm/100ml 100 ML IV SCH ×4 (01:22→23:14)
[2017-11-09 02:35] LABS: BASOPHILS % (AUTO) 0.4 % (0-1); EOSINOPHILS # (AUTO) 0.1 X10'3 (0-0.9); EOSINOPHILS % (AUTO) 1.4 % (0-6); HEMATOCRIT 33.4 % (42.0-52.0); HEMOGLOBIN 11.9 g/dl (14.0-17.9); LYMPHOCYTES # (AUTO) 1.5 X10'3 (1.1-4.8); LYMPHOCYTES % (AUTO) 17.4 % (21-51); MEAN CORPUSCULAR HEMOGLOBIN 31.4 PG (27.0-31.0); MEAN CORPUSCULAR HGB CONC 35.7 % (33.0-36.5); MEAN CORPUSCULAR VOLUME 88.2 FL (78-98); MEAN PLATELET VOLUME 7.4 FL (7.4-10.4); MONOCYTES # (AUTO) 0.7 X10'3 (0-0.9); MONOCYTES % (AUTO) 8.4 % (2-12); NEUTROPHILS # (AUTO) 6.5 X10'3 (1.8-7.7); NEUTROPHILS % (AUTO) 72.4 % (42-75); PLATELET COUNT 143 X10'3 (140-440); RED BLOOD COUNT 3.79 X10'6 (4.70-6.10); RED CELL DISTRIBUTION WIDTH 11.5 % (11.5-14.5); WHITE BLOOD COUNT 8.8 X10'3 (4.5-11.0)
[2017-11-09 02:44] LABS: PARTIAL THROMBOPLASTIN TIME 28 SECONDS (22-32); PROTHROMBIN TIME 10.5 SECONDS (9.0-12.0)
[2017-11-09 02:50] LABS: ALANINE AMINOTRANSFERASE 29 U/L (12-78); ALBUMIN 2.5 G/DL (3.4-5.0); ALBUMIN/GLOBULIN RATIO 0.7 (1.1-1.5); ALKALINE PHOSPHATASE 62 IU/L (46-116); ANION GAP 10 (8-16); ASPARTATE AMINO TRANSFERASE 36 U/L (10-37); BILIRUBIN,TOTAL 1.4 MG/DL (0.1-1.0); BLOOD UREA NITROGEN 14 MG/DL (7-18); BUN/CREATININE RATIO 14.7 (5.4-32.0); CALCIUM 8.2 MG/DL (8.5-10.1); CHLORIDE 109 MMOL/L (99-107); CREATININE 0.95 MG/DL (0.60-1.10); GLUCOSE 118 MG/DL (70-104); MAGNESIUM 1.8 MG/DL (1.5-2.4); PHOSPHORUS 3.5 MG/DL (2.3-4.5); POTASSIUM 3.5 MMOL/L (3.5-5.1); SODIUM 145 MMOL/L (135-145); TOTAL CARBON DIOXIDE 26.1 MMOL/L (24-32); TOTAL PROTEIN 6.1 G/DL (6.4-8.2); eGFR 78 ML/MIN
[2017-11-09] MEDS ORDERED: normal saline 500ml IV soln 500 ML IV ONE (05:25)
[2017-11-09] MEDS: heparin, porcine 5000 units/ml vial SQ SCH ×2 (08:17→20:00)
[2017-11-09] MEDS: pantoprazole 40 MG vial IV SCH (08:17)
[2017-11-09] MEDS: metoprolol tartrate 25mg tablet PO SCH ×2 (08:18→20:03)
[2017-11-09] MEDS: lisinopril 5mg tablet PO SCH (08:18)
[2017-11-09] MEDS: ticagrelor 90mg tablet PO SCH ×2 (08:18→20:03)
[2017-11-09] MEDS: aspirin 81mg tab.chew PO SCH (08:18)
[2017-11-09] MEDS: docusate sod 100mg capsule PO SCH (08:18)
[2017-11-09] MEDS: lactobacillus rhamnosus 10,000 MMU CELLS/CAPSULE PO SCH ×2 (08:19→16:42)
[2017-11-09] MEDS: atorvastatin 20mg tablet PO SCH (20:03)
[2017-11-09] MEDS ORDERED: LORazepam 1 MG tablet PO PRN (22:55)
[2017-11-10 02:00] VITALS: BP 151/72
[2017-11-10 05:28] LABS: BASOPHILS % (AUTO) 0.2 % (0-1); EOSINOPHILS # (AUTO) 0.3 X10'3 (0-0.9); EOSINOPHILS % (AUTO) 3.7 % (0-6); HEMATOCRIT 37.1 % (42.0-52.0); LYMPHOCYTES # (AUTO) 1.4 X10'3 (1.1-4.8); LYMPHOCYTES % (AUTO) 17.7 % (21-51); MEAN CORPUSCULAR HEMOGLOBIN 31.3 PG (27.0-31.0); MEAN CORPUSCULAR VOLUME 89.4 FL (78-98); MONOCYTES # (AUTO) 0.8 X10'3 (0-0.9); MONOCYTES % (AUTO) 10.4 % (2-12); NEUTROPHILS # (AUTO) 5.4 X10'3 (1.8-7.7); PLATELET COUNT 183 X10'3 (140-440); RED BLOOD COUNT 4.15 X10'6 (4.70-6.10); RED CELL DISTRIBUTION WIDTH 12.3 % (11.5-14.5)
[2017-11-10 05:38] LABS: PARTIAL THROMBOPLASTIN TIME 25 SECONDS (22-32); PROTHROMBIN TIME 10.3 SECONDS (9.0-12.0)
[2017-11-10 05:41] LABS: ALANINE AMINOTRANSFERASE 41 U/L (12-78); ALBUMIN 2.7 G/DL (3.4-5.0); ALBUMIN/GLOBULIN RATIO 0.7 (1.1-1.5); ALKALINE PHOSPHATASE 63 IU/L (46-116); ANION GAP 10 (8-16); ASPARTATE AMINO TRANSFERASE 41 U/L (10-37); BLOOD UREA NITROGEN 16 MG/DL (7-18); BUN/CREATININE RATIO 18.6 (5.4-32.0); CALCIUM 8.2 MG/DL (8.5-10.1); CHLORIDE 106 MMOL/L (99-107); CREATININE 0.86 MG/DL (0.60-1.10); GLUCOSE 119 MG/DL (70-104); MAGNESIUM 1.9 MG/DL (1.5-2.4); PHOSPHORUS 3.7 MG/DL (2.3-4.5); POTASSIUM 3.4 MMOL/L (3.5-5.1); PREALBUMIN 13.7 MG/DL (19-36); SODIUM 141 MMOL/L (135-145); TOTAL CARBON DIOXIDE 24.9 MMOL/L (24-32); TOTAL PROTEIN 6.6 G/DL (6.4-8.2); eGFR 88 ML/MIN
[2017-11-10 06:00] VITALS: BP 160/83
[2017-11-10] MEDS: lisinopril 5mg tablet PO SCH (07:06)
[2017-11-10] MEDS: ticagrelor 90mg tablet PO SCH (07:07)
[2017-11-10] MEDS: metoprolol tartrate 25mg tablet PO SCH (07:07)
[2017-11-10] MEDS: lactobacillus rhamnosus 10,000 MMU CELLS/CAPSULE PO SCH (07:09)
[2017-11-10] MEDS: aspirin 81mg tab.chew PO SCH (07:09)
[2017-11-10] MEDS: heparin, porcine 5000 units/ml vial SQ SCH (07:10)
[2017-11-10] MEDS: potassium Cl oral solution 20 MEQ/15 ML PO PRN (07:11)
[2017-11-10] MEDS: piperacillin/tazo 4.5gm/100ml 100 ML IV SCH (07:11)
[2017-11-10 11:00] VITALS: BP 138/81
[2017-11-10] MEDS ORDERED: LISI-604 PO (14:28)
[2017-11-10] MEDS ORDERED: ASPI-1265 PO (14:28)
[2017-11-10] MEDS ORDERED: ATOR20TA66 PO (14:28)
[2017-11-10] MEDS ORDERED: METO25TA6 PO (14:28)
[2017-11-10] MEDS ORDERED: TICA90TA PO (14:28)
== END 2017-11-10 15:34 | disposition home or self-care (01) | DRG 981 ==
LOC: ER 13:07 → ED HOLD 14:04 → CICU 2S 17:28 → PCU 3S 11-09 16:30
PROC: 5A1945Z Respiratory Ventilation, 24-96 Consecutive Hours (ICD-10-PCS; principal; 2017-11-04)
PROC: 027034Z Dilation of Coronary Artery, One Artery with Drug-eluting Intraluminal Device, Percutaneous Approach (ICD-10-PCS; 2017-11-04)
PROC: 4A023N8 Measurement of Cardiac Sampling and Pressure, Bilateral, Percutaneous Approach (ICD-10-PCS; 2017-11-04)
PROC: 0BH17EZ Insertion of Endotracheal Airway into Trachea, Via Natural or Artificial Opening (ICD-10-PCS; 2017-11-04)
PROC: 0D9670Z Drainage of Stomach with Drainage Device, Via Natural or Artificial Opening (ICD-10-PCS; 2017-11-04)
PROC: 02HV33Z Insertion of Infusion Device into Superior Vena Cava, Percutaneous Approach (ICD-10-PCS; 2017-11-04)
PROC: B548ZZA Ultrasonography of Superior Vena Cava, Guidance (ICD-10-PCS; 2017-11-04)
PROC: B2111ZZ Fluoroscopy of Multiple Coronary Arteries using Low Osmolar Contrast (ICD-10-PCS; 2017-11-04)
PROC: B2151ZZ Fluoroscopy of Left Heart using Low Osmolar Contrast (ICD-10-PCS; 2017-11-04)
PROC: 6A4Z0ZZ Hypothermia, Single (ICD-10-PCS; 2017-11-04)
DX: J96.00 Acute respiratory failure, unspecified whether with hypoxia or hypercapnia (principal); I49.01 Ventricular fibrillation; I46.9 Cardiac arrest, cause unspecified; I44.7 Left bundle-branch block, unspecified; I47.2 Ventricular tachycardia; I25.10 Atherosclerotic heart disease of native coronary artery without angina pectoris; F41.9 Anxiety disorder, unspecified; Z79.899 Other long term (current) drug therapy; Z88.5 Allergy status to narcotic agent; Z88.2 Allergy status to sulfonamides
CPT/HCPCS: 36556; 92950; 93306; 93460; 99291; 99292; C9600; 36415; 36600; 70450; 71045; 80048; 80053; 80061; 82330; 82550; 82553; 82803; 82810; 82948; 83605; 83735; 83874; 83880; 84100; 84134; 84484; 84702; 85014; 85018; 85025; 85347; 85610; 85730; 86885; 86900; 86901; 87040; 87070; 87088; 87186; 92616; 93005; 94002; 94003; 94640; 94760; 97116; 97162; 97530; 99152; 99153; A6213; A6257; A6449; C1725; C1751; C1769; C1874; C1894; C9113; J0171; J0282; J0696; J1265; J1644; J1650; J1815; J2001; J2175; J2250; J2543; J3475; J3480; J3490; J7030; J7060; Q9967

== ENCOUNTER 2018-01-12 17:20 | Emergency (ER) | payer MEDICARE ==
[~2018-01-12] VITALS: Ht 177.8 cm; Wt 85.2 kg
[~2018-01-12 17:20] MED LIST changes: +ASPI-1265 PO; +ATOR20TA66 PO; -DOPamine/D5W 400mg/250ml bag IV ONE; -K, MAG and/or Phos replacement - Verify level? MC SCH; +LISI-604 PO; +METO25TA6 PO; -NORepinephrine 1 mg/ml inj IV ONE; +TICA90TA PO; -amiodarone 50MG/ML inj IV ONE; -cefTRIAXone 1g/NS 100ml IVPB 100 ML IV SCH; -enoxaparin 80mg/0.8ml syringe SQ SCH; -epiNEPHrine 0.1mg/ml 10ml syringe ONE; -etomidate 2mg/ml inj. ONE; -pantoprazole 40 MG vial IV SCH; -rocuronium 10mg/ml inj IV ONE
[2018-01-12 20:21] VITALS: BP 138/85
== END 2018-01-12 21:17 | disposition home or self-care (01) ==
LOC: ER 17:20
DX: S80.861D Insect bite (nonvenomous), right lower leg, subsequent encounter (principal); L03.115 Cellulitis of right lower limb; I25.2 Old myocardial infarction; Z88.2 Allergy status to sulfonamides; Z88.5 Allergy status to narcotic agent; Z79.82 Long term (current) use of aspirin; Z79.899 Other long term (current) drug therapy; W57.XXXD Bitten or stung by nonvenomous insect and other nonvenomous arthropods, subsequent encounter
CPT/HCPCS: 99281

== ENCOUNTER 2021-09-01 11:44 | Day surgery (SDC) | payer MEDICARE ==
[2021-09-01] VITALS (9 sets, daily range): BP systolic 138–181; BP diastolic 68–96
[~2021-09-01] VITALS: Ht 177.8 cm; Wt 78.2 kg
[~2021-09-01 11:44] MED LIST changes: +LIDOcaine 1% (10mg/ml)w/preservative injection 20ml MDV ONE; -LISI-604 PO; +LISI5TAB22 PO; +LOP25T PO; -METO25TA6 PO; +fentaNYL/PF 50MCG/1 ML 2ML syringe ONE; +heparin 1,000unit/ml 10ml vial 10 ML ONE; +iohexol 350 MG/ML 50ML vial IV ONE; +iohexol 350MG/ML 100ml bottle IV ONE; +midazolam 1 mg/ML 2ml injection ONE; +nitroGLYCERIN-Tridil 50MG/D5W 250 ML IV ONE; +verapamil 2.5 mg/ml inj IV ONE
[2021-09-01] MEDS ORDERED: normal saline 1,000 ML IV SCH (12:05)
[2021-09-01] MEDS ORDERED: PRAV10TA39 PO (12:09)
[2021-09-01] MEDS ORDERED: LOP25T PO (12:09)
[2021-09-01] MEDS ORDERED: ASPI-1071 PO (12:09)
[2021-09-01] MEDS ORDERED: ZOLP5TAB8 PO (12:09)
[2021-09-01] MEDS ORDERED: LIDOcaine/PRILOcaine 5gm cream TP ONE ×2 (12:20)
[2021-09-01 12:25] LABS: BASOPHILS % (AUTO) 0.5 % (0-1); EOSINOPHILS % (AUTO) 0.4 % (0-6); HEMATOCRIT 48.9 % (42.0-52.0); HEMOGLOBIN 16.7 g/dl (14.0-17.9); LYMPHOCYTES # (AUTO) 1.3 X10'3 (1.1-4.8); LYMPHOCYTES % (AUTO) 25.4 % (21-51); MEAN CORPUSCULAR HEMOGLOBIN 31.3 PG (27.0-31.0); MEAN CORPUSCULAR HGB CONC 34.1 g/dL (33.0-36.5); MEAN CORPUSCULAR VOLUME 91.6 FL (78-98); MEAN PLATELET VOLUME 6.6 FL (7.4-10.4); MONOCYTES # (AUTO) 0.3 X10'3 (0-0.9); MONOCYTES % (AUTO) 6.2 % (2-12); NEUTROPHILS # (AUTO) 3.5 X10'3 (1.8-7.7); NEUTROPHILS % (AUTO) 67.5 % (42-75); PLATELET COUNT 216 X10'3 (140-440); RED BLOOD COUNT 5.34 X10'6 (4.70-6.10); RED CELL DISTRIBUTION WIDTH 12.7 % (11.5-14.5); WHITE BLOOD COUNT 5.2 X10'3 (4.5-11.0)
[2021-09-01 12:36] LABS: PARTIAL THROMBOPLASTIN TIME 25 SECONDS (22-32)
[2021-09-01 12:38] LABS: ALBUMIN 4.8 G/DL (3.4-5.0); ANION GAP 9 (8-16); BLOOD UREA NITROGEN 22 MG/DL (7-18); BUN/CREATININE RATIO 25.3 (5.4-32.0); CALCIUM 9.4 MG/DL (8.5-10.1); CHLORIDE 100 MMOL/L (99-107); CREATININE 0.87 MG/DL (0.60-1.10); GLUCOSE 123 MG/DL (70-104); POTASSIUM 4.3 MMOL/L (3.5-5.1); SODIUM 138 MMOL/L (135-145); TOTAL CARBON DIOXIDE 29.5 MMOL/L (24-32); eGFR 86 ML/MIN
[2021-09-01] MEDS ORDERED: normal saline 1000ml 1,000 ML IV SCH (13:55)
== END 2021-09-01 17:55 | disposition home or self-care (01) ==
LOC: SSTAY O 11:44
PROVIDERS: ATTEND Internal Medicine Cardiovascular Disease
DX: R94.39 Abnormal result of other cardiovascular function study (principal); I25.10 Atherosclerotic heart disease of native coronary artery without angina pectoris; E11.9 Type 2 diabetes mellitus without complications; I10 Essential (primary) hypertension; E78.5 Hyperlipidemia, unspecified; F41.9 Anxiety disorder, unspecified; J44.9 Chronic obstructive pulmonary disease, unspecified; I25.2 Old myocardial infarction; Z79.82 Long term (current) use of aspirin; Z79.899 Other long term (current) drug therapy; Z98.890 Other specified postprocedural states; Z95.5 Presence of coronary angioplasty implant and graft; Z79.01 Long term (current) use of anticoagulants; Z88.2 Allergy status to sulfonamides; Z82.49 Family history of ischemic heart disease and other diseases of the circulatory system; Z81.8 Family history of other mental and behavioral disorders
CPT/HCPCS: 36415; 80048; 85025; 85610; 85730; 93005; 93458; 99152; 99153; C1769; C1894; J1644; J2250; J3010; J3490; J7030; Q9967; A4620; A5120; A6258